=== PATIENT | female | born 1945 | race Native Hawaiian/Other Pacific Islander ===

== ENCOUNTER 2018-04-14 08:50 | Outpatient (CLI) | payer OTHER | END 2018-04-14 19:48 | disposition home or self-care (01) | LOC: RAD 08:50 | DX: J15.8 Pneumonia due to other specified bacteria (principal) ==

== ENCOUNTER 2019-04-20 09:24 | Outpatient (CLI) | payer OTHER | END 2019-04-20 19:35 | disposition home or self-care (01) | LOC: RAD 09:24 | DX: J44.9 Chronic obstructive pulmonary disease, unspecified (principal) ==